=== PATIENT | female | born 1970 | race Caucasian/White ===

== ENCOUNTER 2021-05-21 16:11 | Emergency (ER) | payer SELFPAY ==
--- NOTE | ~2021-05-21 | XR_ITS ---
EXAMINATION: XR CHEST CLINICAL INFORMATION: Chest pain COMPARISON: None TECHNIQUE: Frontal view of the chest was obtained. FINDINGS: Indistinct lateral left diaphragm and left heart border. This most likely represents an epicardial fat pad. No effusion or pneumothorax. Attention on follow-up is symptoms persist. Heart and mediastinum within normal limits for technique. No pulmonary edema. Extensive postsurgical changes in the upper abdomen. If this is a recent finding then an indistinct left diaphragm could represent a reactive effusion. XR/XR chest 1V IMPRESSION: 1. Indistinct left diaphragm. Favor fat pad. 2. Extensive postsurgical changes in the upper abdomen. Clinical correlation required.
--- NOTE | 2021-05-21 16:24 | ECG_ITS ---
Test Reason : chest pain/weakness Blood Pressure : / mmHG Vent. Rate : 055 BPM Atrial Rate : 055 BPM P-R Int : 140 ms QRS Dur : 102 ms QT Int : 426 ms P-R-T Axes : 041 010 021 degrees QTc Int : 407 ms Sinus bradycardia Nonspecific ST and T wave abnormality Abnormal ECG No previous ECGs available Referred By: Generic ED Physician Electronically Signed By:COLUMBA HANNAH
[2021-05-21 17:43] VITALS: BP 135/77; PULSE 55; RESP 18; TEMP 37; O2SAT 98; BMI 40.7
[2021-05-21 17:54] LABS: Hematocrit 41.2 % (37.0-47.0); Hemoglobin 13.3 g/dl (12.0-16.0); Mean Corpuscular HGB Conc 32.3 g/dl (31.0-35.0); Mean Corpuscular Hemoglobin 27.6 pg (27.0-33.0); Mean Corpuscular Volume 85.5 fL (80.0-98.0); Mean Platelet Volume 10.8 fL (9.4-12.3); Platelet Count 246 X10*3/uL (160-400); Red Blood Count 4.82 X10*6/uL (4.20-5.50); Red Cell Distribution Width 13.2 % (11.0-16.0); White Blood Count 6.6 X10*3/uL (4.8-10.8)
[2021-05-21 18:07] LABS: Anion Gap 13 (12-20); Blood Urea Nitrogen 18 mg/dL (9-16); Calcium 9.9 mg/dL (8.4-10.2); Carbon Dioxide 27 mmol/L (22-29); Chloride 107 mmol/L (96-108); Creatinine Clr Calc Pharmacy 94.9; Estimated Glomerular Filt Rate > 60; Glucose Random 90 mg/dL (60-115); Potassium 4.2 mmol/L (3.3-5.1); Sodium 143 mmol/L (135-145)
[2021-05-21 18:13] LABS: Troponin-I High Sensitivity < 3.5 ng/L (<3.5-17.0)
== END 2021-05-21 18:29 | disposition left against medical advice (07) ==
LOC: HO.ED 18:28
PROVIDERS: Emergency Provider Emergency Medicine
DX: R07.9 Chest pain, unspecified (principal); R00.2 Palpitations; I10 Essential (primary) hypertension; J45.909 Unspecified asthma, uncomplicated
CPT/HCPCS: 36415; 71045; 80048; 84484; 85027; 93005; 99283